=== PATIENT | male | born 1935 | race Caucasian/White ===

== ENCOUNTER → 2016-11-30 | Day surgery (SDC) | payer MEDICARE, OTHER ==
[~2016-11-30] MED LIST: ACETAMINOPHEN/HYDROcodone 325 MG/5 MG TAB ONE; BUPIVACAINE/EPINEPHRINE 0.25% 50 ML VIAL ONE; KETOROLAC TROMETHAMINE 30 MG/ML (IVP) VIAL IV PUSH ONE; MORPHINE SULFATE 4 MG/ML INJ ONE; ONDANSETRON HCL 4 MG/2 ML VIAL IV PUSH ONE; PROPOFOL 200 MG/20 ML AMP IV ONE; ceFAZolin 2 GM PREMIX 50 ML ONE
--- NOTE | 2016-11-30 18:30 | TN ---
cc: DIANDRA BOLANOS MD, DAVID G. M.D. DATE OF SURGERY 11/30/2016 PREOPERATIVE DIAGNOSES Left inguinal hernia, right groin pain, abnormal CT with inflammatory changes around the cecum and appendix. 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 POSTOPERATIVE DIAGNOSES Left inguinal hernia, right groin pain, abnormal CT with inflammatory changes around the cecum and appendix. 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 Left indirect inguinal hernia with incarcerated sigmoid colon. Right groin mesh plug. Normal appearing cecum. Gallbladder with omentum stuck to it. ESTIMATED BLOOD LOSS Less than 10 ml. DESCRIPTION OF THE PROCEDURE IN DETAILS The patient identified as Karlos Odraz, taken to operating room and placed in the supine position. Sequential compression devices were placed on bilateral lower extremities. Following induction of adequate general endotracheal anesthesia, the patient's abdomen was prepped and draped in usual sterile fashion with Betadine. A time-out procedure was performed. Following completion of the time-out procedure to everyone's satisfaction within the room, local anesthetic was placed in a supraumbilical position and a small vertical incision was made with scalpel and dissection continued to the posterior level of midline fascia. The base of the umbilicus was retracted anteriorly. The supraumbilical midline fascia was incised vertically and entry in the peritoneal cavity was facilitated with the surgeon's finger. The applied medical balloon Chen trocar was placed in peritoneal cavity, its balloon inflated to insufflation to level of 15 mmHg ensued. The patient was placed in a Trendelenburg position. The mesh plug in the right side was identified. There was no evidence of recurrent hernia. A large indirect inguinal hernia with incarcerated sigmoid colon was identified and a large amount of scar tissue in the pelvis associated with the implant reservoir was identified. Trocar placement was slightly right of midline infraumbilical. Two 5 mm trocars were placed in the peritoneal cavity under direct laparoscopic view after incision of the skin with a scalpel. Attention was turned first to creating a preperitoneal space and reducing the indirect inguinal hernia on the left side. The peritoneum was opened medially using the harmonic scalpel which greatly facilitated dissection due to the amount of scar tissue that was encountered. The implant reservoir was left alone. The left iliac vein was uncovered but not injured, and the hernia sac was reduced from the inguinal canal dissecting laterally peritoneum for least a 6 cm distance. A photograph was taken of the reduced tissue and a posterior window was developed posterior to the spermatic cord. A 10 x 15 x 1 piece of Higbee-Avery dual mesh was selected and marked laterally and the medial slit slightly superior to the midline or laterally was made. The mesh was rolled, placed in the peritoneal cavity, placed around the spermatic cord and tacked in position with the capture device. Tacks were placed to approximate the slit medially superior to the implant reservoir which was left alone thus not allowing for uncovering of the Brady's ligament. Tacks were then placed every 1-2 cm along the superior border of the mesh taking care not to place any tacks inferolaterally. The peritoneum laterally was brought over the top of the mesh and tacked in position in three or four places. This left the medial mesh exposed but again it was the Higbee-Avery dual mesh. Photograph was taken of the completed repair. Attention was then turned to the right lower quadrant. The cecum and terminal ileum appeared normal. There are no inflammatory changes that were identified. The mesh plug was potentially the etiology of the pain and therefore about two-thirds of the mesh plug were able to be divided from surrounding tissues down the inguinal canal and it was divided and excised taking care to preserve the spermatic cord structures. Photograph was taken of the completed mesh excision. Survey of the remainder intra-abdominal contents demonstrated normal appearing liver and gallbladder which was not acutely inflamed but had adhesions of omentum to the gallbladder. The omentum was then draped across the small bowel and the cecum and local anesthetic was injected around the areas of dissection. The abdomen was desufflated after the ports were removed ensuring there was no evidence of bleeding from the port sites. Supraumbilical fascial defect was closed with interrupted [id number] 2-0 Vicryl sutures. Port site skin incisions were approximated with 4-0 Monocryl subcuticular sutures. Skin incisions were covered with Dermabond. The patient tolerated the procedure without apparent complication. Sponge, needle and instrument counts were correct at the end of case. MD SANTANA Valdes/KIRSTIE /4:55 PM /6:00 PM
== END | disposition home or self-care (01) ==
LOC: ESDC 13:24
PROVIDERS: ATTEND Surgery Trauma Surgery
DX: K40.30 Unilateral inguinal hernia, with obstruction, without gangrene, not specified as recurrent (principal)
CPT/HCPCS: 00840; 49650; C1781; J0690; J1885; J2270; J2405; J3010